=== PATIENT | female | born 1980 | race Caucasian/White ===

== ENCOUNTER 2018-07-08 08:28 | Emergency (ER) | payer OTHER ==
--- NOTE | 2018-07-08 08:44 | ED ---
- HPI Summary HPI Summary: Patient is a 29-year-old female who presents emergency department for a needle stick to her left thumb that occurred just prior to arrival. 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 She was performing a lumbar puncture on palpation from the patient jumped and a small gauge needle poked her left thumb. Patient irrigated and cleaned wound immediately. Patient states that source patient does not have a noted history of blood borne pathogens. Labs on source patient were ordered. Patient has no past medical history. Immunizations are up-to-date including tetanus. Symptoms are moderate in severity. No current modifying factors. - History of Current Complaint Chief Complaint: EDGeneral Stated Complaint: EXPOSURE Time Seen by Provider: 07/08/18 08:33 Needlestick: Hollow Needle PMH/Surg Hx/FS Hx/Imm Hx Previously Healthy: Yes Infectious Disease History: No Infectious Disease History: Denies: Traveled Outside the [place] in Last 30 Days - Social History Occupation: Employed Full-time Lives: With Family Review of Systems Positive: Other - Needle stick left thumb All Other Systems Reviewed And Are Negative: Yes Physical Exam Triage Information Reviewed: Yes Vital Signs On Initial Exam: Initial Vitals Temp Pulse Resp BP Pulse Ox 98.3 F 88 20 121/83 99 07/08/18 08:29 07/08/18 08:29 07/08/18 08:29 07/08/18 08:29 07/08/18 08:29 Vital Signs Reviewed: Yes Appearance: Positive: Well-Appearing - Pt. sitting on bed in NAD. Skin: Positive: Warm, Dry Head/Face: Positive: Normal Head/Face Inspection Eyes: Positive: Normal, EOMI Neck: Positive: Supple Neurological: Positive: Normal, CN Intact II-III Psychiatric: Positive: Affect/Mood Appropriate Diagnostics - Vital Signs Vital Signs Temp Pulse Resp BP Pulse Ox 07/08/18 08:29 98.3 F 88 20 121/83 99 - Laboratory Lab Statement: Any lab studies that have been ordered have been reviewed, and results considered in the medical decision making process. Needlestick Course/Dx - Course Course Of Treatment: Pt. presenting for needle stick injury. Source pt. and pt. labs were drawn. Pt. offered her phylactic treatment which she declines at this point. Low risk for transmission. Patient will follow up with employee health for testing results and further evaluation. Patient understands and agrees with plan. - Diagnoses Provider Diagnoses: Needle stick injury of finger Discharge - Sign-Out/Discharge Documenting (check all that apply): Patient Departure - Discharge Plan Condition: Good Disposition: HOME Patient Education Materials: Needle Stick Injuries (ED) Referrals: Natalia BELTRAN,Edilberto Nicholson [Medical Doctor] - employee [facility] [Z.[email or web address], APPLICATION, OTHER] - Additional Instructions: Follow up with employee health for testing results and further testing and treatment if needed Test results should be back later today - Billing Disposition and Condition Condition: GOOD Disposition: Home
[2018-07-08 09:04] VITALS: BP 112/73
== END 2018-07-08 09:01 | disposition home or self-care (01) ==
LOC: ED 08:28
DX: S69.92XA Unspecified injury of left wrist, hand and finger(s), initial encounter (principal); W46.0XXA Contact with hypodermic needle, initial encounter; Y92.239 Unspecified place in hospital as the place of occurrence of the external cause; Y99.0 Civilian activity done for income or pay
CPT/HCPCS: 36415; 86703; 86706; 86803; 87340; 99282

== ENCOUNTER 2020-10-27 07:53 | Inpatient (IN) ==
[2020-10-27] MEDS ORDERED: Lactated Ringers 1000 ml BAG 1,000 ML IV ONE (09:04)
[2020-10-27] MEDS ORDERED: Buffered Lidocaine 1% SYRIN 1 ml INTRADERM ONE (09:04)
[2020-10-27 09:40] LABS: ABS Basophils 0.1 10^3/ul (0-0.2); ABS Eosinophils 0.1 10^3/ul (0-0.6); ABS Lymphocytes 2.1 10^3/ul (1.0-4.8); ABS Monocytes 0.7 10^3/ul (0-0.8); ABS Neutrophils 6.4 10^3/ul (1.5-7.7); Eosinophil % 1.2 %; Hematocrit 32 % (35-47); Hemoglobin 10.9 g/dL (12.0-16.0); Lymphocyte % 22.9 %; Mean Corpuscular HGB Conc 34 g/dL (31-36); Mean Corpuscular Hemoglobin 31 pg (27-31); Mean Corpuscular Volume 92 fL (80-97); Mean Platelet Volume 9.6 fL (7.4-10.4); Nucleated Red Blood Cells % 0.1; Platelet Count 340 10^3/uL (150-450); Red Blood Count 3.46 10^6 /uL (3.70-4.87); Red Cell Distribution Width 14 % (10-15); White Blood Count 9.4 10^3/uL (3.5-10.8)
[2020-10-27] MEDS ORDERED: Oxytocin in LR 20 UNITS/1,000 ML BAG IVPB SCH (10:00)
[2020-10-27] MEDS ORDERED: Lactated Ringers 1000 ml BAG 1,000 ML IV SCH (10:00)
[2020-10-27 10:02] LABS: Urine Benzodiazepine Screen None Detected (None Detect); Urine Cannabinoids Screen None Detected (None Detect); Urine Opiates Screen None Detected (None Detect)
[2020-10-27] MEDS ORDERED: OBEPIDURAL 250 ML EPIDURAL ONE (19:33)
[2020-10-28] MEDS ORDERED: Witch Hazel PAD JAR TOPICAL PRN (00:26)
[2020-10-28] MEDS ORDERED: RHO D Immune Globulin (HUMAN) 300 MCG = 1,500 I.U. INJ IM PRN (00:26)
[2020-10-28] MEDS ORDERED: Glycerin ADULT 2.4 gm SUPP PR PRN (00:26)
[2020-10-28] MEDS ORDERED: Dibucaine 1% OINT 28.35 GM TUBE PR PRN (00:26)
[2020-10-28] MEDS ORDERED: Oxytocin in LR 20 UNITS/1,000 ML BAG IVPB SCH (01:00)
[2020-10-28] MEDS ORDERED: Lactated Ringers 1000 ml BAG 1,000 ML IV SCH ×2 (01:00→05:00)
[2020-10-28] MEDS ORDERED: Methylergonovine 0.2 mg AMPULE 1 ml AMP IM ONE (02:39)
[2020-10-28] MEDS ORDERED: Sodium Citrate/Citric Acid LIQ 15 ML UDC PO PRN (04:45)
[2020-10-28] MEDS ORDERED: Lactated Ringers 1000 ml BAG 1,000 ML IV ONE (04:45)
[2020-10-28 08:34] LABS: ABS Basophils 0.1 10^3/ul (0-0.2); ABS Eosinophils 0.1 10^3/ul (0-0.6); ABS Lymphocytes 1.6 10^3/ul (1.0-4.8); ABS Monocytes 0.9 10^3/ul (0-0.8); ABS Neutrophils 11.5 10^3/ul (1.5-7.7); Eosinophil % 0.7 %; Hematocrit 30 % (35-47); Hemoglobin 9.9 g/dL (12.0-16.0); Lymphocyte % 11.5 %; Mean Corpuscular HGB Conc 33 g/dL (31-36); Mean Corpuscular Hemoglobin 30 pg (27-31); Mean Corpuscular Volume 93 fL (80-97); Mean Platelet Volume 9.6 fL (7.4-10.4); Platelet Count 278 10^3/uL (150-450); Red Blood Count 3.25 10^6 /uL (3.70-4.87); Red Cell Distribution Width 14 % (10-15); White Blood Count 14.3 10^3/uL (3.5-10.8)
[2020-10-28] MEDS ORDERED: Lidocaine 1% VIAL 10 MG/ML VIAL ONE (10:33)
[2020-10-28] MEDS ORDERED: Methylergonovine 0.2 mg AMPULE 1 ml AMP ONE (10:34)
[2020-10-29 06:19] LABS: ABS Basophils 0.1 10^3/ul (0-0.2); ABS Eosinophils 0.3 10^3/ul (0-0.6); ABS Lymphocytes 2.5 10^3/ul (1.0-4.8); ABS Monocytes 0.6 10^3/ul (0-0.8); ABS Neutrophils 7.2 10^3/ul (1.5-7.7); Eosinophil % 2.6 %; Hematocrit 28 % (35-47); Hemoglobin 9.5 g/dL (12.0-16.0); Lymphocyte % 23.7 %; Mean Corpuscular HGB Conc 34 g/dL (31-36); Mean Corpuscular Hemoglobin 31 pg (27-31); Mean Corpuscular Volume 92 fL (80-97); Mean Platelet Volume 8.9 fL (7.4-10.4); Platelet Count 294 10^3/uL (150-450); Red Blood Count 3.03 10^6 /uL (3.70-4.87); Red Cell Distribution Width 14 % (10-15); White Blood Count 10.7 10^3/uL (3.5-10.8)
[2020-10-29] MEDS: OBEPIDURAL 250 ML EPIDURAL SCH ×2 (07:16→07:17)
[2020-10-29 08:14] VITALS: BP 113/63
== END 2020-10-29 11:41 | disposition home or self-care (01) | DRG 807 ==
LOC: MCHOBOUT 07:53 → MCHOB 08:28
PROVIDERS: ADMIT Obstetrics & Gynecology; ATTEND Obstetrics & Gynecology